=== PATIENT | female | born 1990 | race Caucasian/White ===

== ENCOUNTER 2017-03-04 11:54 | Emergency (ER) | payer SELFPAY ==
[~2017-03-04] VITALS: Ht 167.6 cm; Wt 56.7 kg
[2017-03-04] MEDS ORDERED: HALOPERIDOL LACTATE INJ 5 MG/ML VIAL IM ONE (12:30)
[2017-03-04] MEDS ORDERED: LORAZEPAM INJ 2 MG/ML VIAL IVP ONE (12:30)
[2017-03-04 12:33] LABS: BASOPHILS # (AUTO) 0.2 /CMM (0.0-0.2); BASOPHILS % (AUTO) 1.6 % (0.0-2.0); EOSINOPHILS % (AUTO) 0.3 % (0.0-6.0); HEMATOCRIT 40 % (33-45); HEMOGLOBIN 13.7 g/dL (11.5-14.8); LYMPHOCYTES # (AUTO) 0.7 /CMM (0.8-4.8); LYMPHOCYTES % (AUTO) 6.1 % (20.0-44.0); MEAN CORPUSCULAR HEMOGLOBIN 32 PG (26.0-33.0); MEAN CORPUSCULAR HGB CONC 35 g/dl (31.0-36.0); MEAN CORPUSCULAR VOLUME 94 fL (82-100); MONOCYTES # (AUTO) 0.5 /CMM (0.1-1.30); MONOCYTES % (AUTO) 4.9 % (2.0-12.0); NEUTROPHILS # (AUTO) 9.7 /CMM (1.8-8.9); NEUTROPHILS % (AUTO) 87.1 % (43.0-81.0); PLATELET COUNT (AUTO) 236 /CMM (150-450); RED BLOOD CELL COUNT(AUTO) 4.24 MIL/uL (4.0-5.2); WHITE BLOOD COUNT (AUTO) 11.1 K/uL (4.3-11.0)
[2017-03-04] MEDS ORDERED: HALOPERIDOL LACTATE INJ 5 MG/ML VIAL ONE (12:50)
[2017-03-04] MEDS ORDERED: LORAZEPAM INJ 2 MG/ML VIAL ONE (12:51)
[2017-03-04 12:54] LABS: ALBUMIN 4.4 g/dL (3.4-5.0); BILIRUBIN,DIRECT 0.2 mg/dL (0.0-0.2); BILIRUBIN,TOTAL 1.6 mg/dL (0.2-1.0); CALCIUM, SERUM 9.1 mg/dL (8.5-10.1); CREATININE 0.8 mg/dL (0.6-1.3); POTASSIUM 3.7 mmol/L (3.5-5.1); TOTAL PROTEIN, SERUM 8.2 g/dL (6.4-8.2)
[2017-03-04 14:25] LABS: APPEARANCE,URINE CLEAR (CLEAR); BILIRUBIN,URINE NEGATIVE (NEGATIVE); BLOOD, URINE NEGATIVE Ery/uL (NEGATIVE); COLOR,URINE YELLOW (YELLOW); KETONES,URINE 2+ (NEGATIVE); LEUKOCYTE ESTERASE ,URINE NEGATIVE (NEGATIVE); NITRITE, URINE NEGATIVE (NEGATIVE); PH,URINE 5.5 (5.0-8.0); PROTEIN,URINE TRACE mg/dl (NEGATIVE); UGLUCOSE NEGATIVE (NEGATIVE); UROBILINOGEN,URINE 0.2 EU/dL (0.2)
[2017-03-04 15:00] LABS: BACTERIA,URINE None seen /HPF (None Seen); RBC,URINE 0-2 /HPF (0-2); SQUAMOUS EPITHELIAL CELL,UR Few /HPF (None Seen); WBC,URINE 0-2 /HPF (0-3)
--- NOTE | 2017-03-04 19:20 | NUR ---
ASSUMED DISCHARGE CARE ONLY.
--- NOTE | 2017-03-04 19:32 | NUR ---
Patient discharged to home in stable condition. Written and verbal after care instructions given. Patient verbalizes understanding of instruction. PT AMBULATED OUT WITH A STEADY GAIT. VSS.
[2017-03-04 19:33] VITALS: BP 123/80
== END 2017-03-04 19:34 | disposition home or self-care (01) ==
LOC: ER 11:55
DX: R11.2 Nausea with vomiting, unspecified (principal); Z86.19 Personal history of other infectious and parasitic diseases
CPT/HCPCS: 36415; 80048; 80076; 80305; 81001; 84703; 85025; 96372; 96374; 99284; A4606; G0480; J1630; J2060; Z7610; 81000-TC

== ENCOUNTER 2018-08-10 21:24 | Emergency (ER) | payer SELFPAY ==
[~2018-08-10] VITALS: Ht 160 cm; Wt 68.0 kg
[2018-08-10] MEDS ORDERED: LORAZEPAM INJ 2 MG/ML VIAL IV ONE (22:30)
[2018-08-10] MEDS ORDERED: IV NS 0.9% 1,000 ML BAG IV ONE (22:30)
--- NOTE | 2018-08-10 22:39 | NUR ---
FRIEND CALLED VICTOR MANUEL KOO . STATED THAT SHE IS ON HOUSE ARREST AND THAT HE WAS CONCERNED THAT SHE WAS GOING TO HURT HER SELF, AND THAT HE THINKS SHE NEEDS TO BE EVALUATED.
[2018-08-10] MEDS ORDERED: LORAZEPAM INJ 2 MG/ML VIAL ONE (22:45)
[2018-08-10 22:48] LABS: BASOPHILS # (AUTO) 0.1 /CMM (0.0-0.2); BASOPHILS % (AUTO) 1.1 % (0.0-2.0); EOSINOPHILS % (AUTO) 1.7 % (0.0-6.0); HEMATOCRIT 47 % (33-45); HEMOGLOBIN 15.9 g/dL (11.5-14.8); LYMPHOCYTES # (AUTO) 2.1 /CMM (0.8-4.8); LYMPHOCYTES % (AUTO) 25.5 % (20.0-44.0); MEAN CORPUSCULAR HGB CONC 34 g/dl (31.0-36.0); MEAN CORPUSCULAR VOLUME 92 fL (82-100); MONOCYTES # (AUTO) 0.6 /CMM (0.1-1.30); MONOCYTES % (AUTO) 6.8 % (2.0-12.0); NEUTROPHILS # (AUTO) 5.4 /CMM (1.8-8.9); NEUTROPHILS % (AUTO) 64.9 % (43.0-81.0); PLATELET COUNT (AUTO) 315 /CMM (150-450); RED BLOOD CELL COUNT(AUTO) 5.12 MIL/uL (4.0-5.2); WHITE BLOOD COUNT (AUTO) 8.4 K/uL (4.3-11.0)
[2018-08-10 22:59] LABS: CALCIUM, SERUM 8.1 mg/dL (8.5-10.1); POTASSIUM 4.5 mmol/L (3.5-5.1)
[2018-08-10 23:05] LABS: SALICYLATE 1.4 mg/dL (2.8-20.0)
[2018-08-10 23:06] LABS: ALBUMIN 4.1 g/dL (3.4-5.0); BILIRUBIN,DIRECT 0.1 mg/dL (0.0-0.2); BILIRUBIN,TOTAL 0.6 mg/dL (0.2-1.0); TOTAL PROTEIN, SERUM 7.9 g/dL (6.4-8.2)
--- NOTE | 2018-08-10 23:07 | NUR ---
BIBSELF C/O VAGINAL BLEEDING X1 DAY. +ABDOMINAL PAIN, +NAUSEA, +VOMITTING. PT AAOX3, VSS. PT STS SHE BEEN DRINKING ETOH LAST NIGHT BECAUSE IT WAS HER BIRTHDAY. DEPRESSED, THOUGHT OF HARMING HERSELF 2 DAYS AGO. NO PLAN AT THIS TIME. SEEN & EVAL'D BY FLORENCIA BUENO & AWARE OF HER SITUATION. MEDICATED ORDERED, PT JENNA WELL. DENIES CP, SOB, DIZZINESS AT THIS TIME. WILL CONT TO MONITOR.
[2018-08-10] MEDS ORDERED: ONDANSETRON HCL/PF 4 MG/2 ML VIAL ONE (23:15)
[2018-08-10] MEDS ORDERED: ONDANSETRON HCL/PF 4 MG/2 ML VIAL IV ONE (23:30)
--- NOTE | 2018-08-10 23:30 | NUR ---
REC'D REPORT FROM NAGA GONZALEZ FOR [facility]IP
[2018-08-10 23:40] LABS: APPEARANCE,URINE Clear (CLEAR); BILIRUBIN,URINE Negative (NEGATIVE); BLOOD, URINE Moderate Ery/uL (NEGATIVE); COLOR,URINE Yellow (YELLOW); KETONES,URINE 80 (NEGATIVE); LEUKOCYTE ESTERASE ,URINE Negative (NEGATIVE); NITRITE, URINE Negative (NEGATIVE); PH,URINE 5.5 (5.0-8.0); PROTEIN,URINE 100 mg/dl (NEGATIVE); UGLUCOSE Negative (NEGATIVE); UROBILINOGEN,URINE 0.2 EU/dL (0.2)
[2018-08-11 00:07] LABS: BACTERIA,URINE Few /HPF (None Seen); SQUAMOUS EPITHELIAL CELL,UR Few /HPF (None Seen); WBC,URINE 0-2 /HPF (0-3)
[2018-08-11] MEDS ORDERED: LORAZEPAM INJ 2 MG/ML VIAL ONE (00:28)
[2018-08-11] MEDS ORDERED: LORAZEPAM INJ 2 MG/ML VIAL IV ONE (00:30)
[2018-08-11] MEDS ORDERED: PROMETHAZINE HCL 25 MG/SUPP.RECT RC ONE ×2 (00:30)
[2018-08-11] MEDS ORDERED: IOHEXOL-300 100 ML VIAL IV ONE (00:36)
[2018-08-11] MEDS ORDERED: IV NS 0.9% 250 ML IV ONE (00:36)
[2018-08-11] MEDS ORDERED: CT SWABBABLE VALVE TRANS SET 1 EA INFUS.SET MC ONE (00:36)
--- NOTE | 2018-08-11 00:37 | NUR ---
RADIOLOGY AT BEDSIDE FOR CT
--- NOTE | 2018-08-11 00:53 | NUR ---
PT RETURNED FROM CT
[2018-08-11] MEDS ORDERED: IV NS 0.9% 1,000 ML BAG IV ONE (02:00)
--- NOTE | 2018-08-11 02:22 | NUR ---
PT RESTING COMFORTABLY IN BED. VITAL SIGNS STABLE. NO ACUTE DISTRESS NOTED AT THIS TIME. WILL CONTINUE TO MONITOR
--- NOTE | 2018-08-11 02:50 | NUR ---
TRIMMING CASER AT BEDSIDE FOR REDRAW
[2018-08-11 04:20] LABS: CALCIUM, SERUM 7.1 mg/dL (8.5-10.1); CREATININE 0.7 mg/dL (0.6-1.3)
--- NOTE | 2018-08-11 06:30 | NUR ---
Patient discharged to home in stable condition. Written and verbal after care instructions given. Patient verbalizes understanding of instruction. IV removed. Catheter intact and site benign. Pressure and 4x4 applied to site. No bleeding noted. Pt ambulatory with a steady gait
[2018-08-11 06:39] VITALS: BP 95/67
== END 2018-08-11 06:39 | disposition home or self-care (01) ==
LOC: ER 21:24
DX: R11.2 Nausea with vomiting, unspecified (principal); F17.200 Nicotine dependence, unspecified, uncomplicated; Z90.49 Acquired absence of other specified parts of digestive tract; Z86.19 Personal history of other infectious and parasitic diseases
CPT/HCPCS: 36415 ×2; 74177; 80048 ×2; 80076; 80305; 80307; 80329; 81001; 83690; 84703; 85025; 85730; 96361; 96374; 96375; 96376; 99284; G0480; J2060 ×2; J2405; J7030 ×2; J7050; Q9967; 81000-TC